=== PATIENT | female | born 1975 | race African-American/Black ===

== ENCOUNTER 2022-07-01 23:49 | Inpatient (IN) | payer MEDICAID ==
[~2022-07-01] VITALS: Ht 175.3 cm; Wt 84.5 kg
[~2022-07-01 23:49] MED LIST: ALPR0.5T7; CARI350T27; FAMO-12; FLUO40CA; HYDR-2595
[2022-07-02] MEDS ORDERED: ACCU-CHEK COMFORT CURVE STRIP VI ONE (00:30)
[2022-07-02 00:58] LABS: Basophils # (auto) 0.1 10 ^3/uL (0-0.2); Basophils % (auto) 0.5 % (0.0-2.0); Eosinophils # (auto) 0.1 10 ^3/uL (0-0.8); Eosinophils % (auto) 0.5 % (0.0-7.0); Hematocrit 29.8 % (36.0-46.0); Hemoglobin 10.1 g/dL (12.2-16.2); Lymphocytes # (auto) 2.1 10 ^3/uL (0.4-5.4); Lymphocytes % (auto) 15.4 % (10.0-50.0); Mean Corpuscular Hemoglobin 28.1 pg (28.0-32.0); Mean Corpuscular Volume 82.7 fL (80.0-100.0); Monocytes # (auto) 0.6 10 ^3/uL (0-1.3); Monocytes % (auto) 4.2 % (0.0-12.0); Neutrophils % (auto) 79.4 % (37.0-80.0); Nucleated Red Blood Cells % 0.1 %; Red Cell Distribution Width 14.4 % (11.8-14.3); White Blood Cell 13.8 10^3/uL (4.4-10.8)
[2022-07-02 01:13] LABS: Albumin 3.2 g/dL (3.4-5.0); BUN/Creatinine Ratio 44.3 (10.0-20.0); Calcium 7.8 mg/dL (8.5-10.1); Potassium 3.8 mmol/L (3.5-5.1)
[2022-07-02 01:16] LABS: Bilirubin, Total 0.3 mg/dL (0.2-1.0); Total Protein 6.5 g/dL (6.4-8.2)
[2022-07-02] MEDS ORDERED: ONDANSETRON HCL 4 MG/2 ML VIAL IV ONE ×3 (04:30→10:15)
[2022-07-02] MEDS ORDERED: HYDROmorphone HCL 2 MG/ML VL/or syr IV ONE ×2 (04:30→08:30)
[2022-07-02 04:54] LABS: Urine Bacteria NONE SEEN /hpf (None Seen); Urine Blood Negative /uL (Negative); Urine Specific Gravity 1.026 (1.001-1.035); Urine WBC 1 /hpf (0 - 5)
[2022-07-02] MEDS ORDERED: OMNIPAQUE 12mg/ml 500ml ORAL SOLUTION PO ONE (09:27)
[2022-07-02] MEDS ORDERED: IOHEXOL 300 MG/ML 100ML BOTTLE IJ ONE (09:28)
[2022-07-02] MEDS ORDERED: MORPHINE SULFATE INJ 2 MG/ml SYRG IV PRN (15:30)
[2022-07-02] MEDS ORDERED: PIPERACILLIN-TAZOB 3.375GM 100 ML IV ONE (16:00)
[2022-07-02] MEDS: SODIUM CHLORIDE 0.9% 1,000 ML IV SCH ×2 (17:50→23:50)
[2022-07-02] MEDS: HYDROmorphone HCL 2 MG/ML VL/or syr IV PRN ×2 (18:03→21:56)
[2022-07-02] MEDS: ONDANSETRON HCL 4 MG/2 ML VIAL IV PRN ×2 (18:04→21:55)
[2022-07-02] MEDS ORDERED: PANTOPRAZOLE 40 MG/10 ML VIAL INJ IV SCH (22:00)
[2022-07-03] MEDS: PIPERACILLIN-TAZOB 3.375GM 100 ML IV SCH ×2 (00:30→08:45)
[2022-07-03 05:30] LABS: Basophils # (auto) 0 10 ^3/uL (0-0.2); Basophils % (auto) 0.3 % (0.0-2.0); Eosinophils # (auto) 0 10 ^3/uL (0-0.8); Eosinophils % (auto) 0.2 % (0.0-7.0); Hematocrit 26.5 % (36.0-46.0); Hemoglobin 9.1 g/dL (12.2-16.2); Lymphocytes # (auto) 3.5 10 ^3/uL (0.4-5.4); Lymphocytes % (auto) 29.6 % (10.0-50.0); Mean Corpuscular Hemoglobin 28.5 pg (28.0-32.0); Mean Corpuscular Hgb Conc. 34.4 g/dL (32.0-36.0); Mean Corpuscular Volume 82.9 fL (80.0-100.0); Monocytes # (auto) 0.5 10 ^3/uL (0-1.3); Monocytes % (auto) 4.2 % (0.0-12.0); Neutrophils # (auto) 7.7 10 ^3/uL (1.6-8.6); Neutrophils % (auto) 65.7 % (37.0-80.0); Nucleated Red Blood Cells % 0.1 %; Red Blood Cells 3.19 10^6/uL (4.0-5.20); Red Cell Distribution Width 14.3 % (11.8-14.3); White Blood Cell 11.8 10^3/uL (4.4-10.8)
[2022-07-03 05:48] LABS: Albumin 3.8 g/dL (3.4-5.0); Calcium 8.5 mg/dL (8.5-10.1); Potassium 3.8 mmol/L (3.5-5.1)
[2022-07-03 05:53] LABS: BUN/Creatinine Ratio 19.2 (10.0-20.0); Bilirubin, Total 0.6 mg/dL (0.2-1.0)
[2022-07-03] MEDS: ONDANSETRON HCL 4 MG/2 ML VIAL IV PRN (06:35)
[2022-07-03] MEDS: SODIUM CHLORIDE 0.9% 1,000 ML IV SCH (08:10)
[2022-07-03 09:24] VITALS: BP 116/74
== END 2022-07-03 09:24 | disposition short-term general hospital (02) | DRG 254 ==
LOC: ER 23:49 → EDUNIT# 23:49 → EDBD 23:49 → TELE 07-02 15:35 → UNDODISIN 07-03 09:24
PROVIDERS: ADMIT Nurse Practitioner Family; ATTEND Internal Medicine Geriatric Medicine
DX: K31.9 Disease of stomach and duodenum, unspecified (principal); E87.8 Other disorders of electrolyte and fluid balance, not elsewhere classified; D25.9 Leiomyoma of uterus, unspecified; M19.90 Unspecified osteoarthritis, unspecified site; M79.7 Fibromyalgia; Z87.891 Personal history of nicotine dependence
CPT/HCPCS: 36415; 71045; 74176; 74177; 80053; 81001; 83605; 83880; 84484; 85025; 86850; 86900; 86901; 87040; 93005; 96365; 96366; 96375; 96376; C9113; G0378; J2405; J2543

== ENCOUNTER 2024-11-11 19:40 | Emergency (ER) | payer MEDICAID ==
[~2024-11-11] VITALS: Ht 157.5 cm; Wt 85.3 kg
[~2024-11-11 19:40] MED LIST changes: +CARI-578; -CARI350T27
[2024-11-11 19:52] VITALS: BP 174/86; PULSE 75; RESP 20; TEMP 97.8; O2SAT 100
--- NOTE | 2024-11-11 20:28 | ED.PDOC ---
History of Present Illness HPI Comments 49 y/o obese F, with a history of GI malignancy and fibromyalgia, presents with c/c shortness of breath and generalized weakness and tingling sensations. Patient endorses on being, currently, treated for her cancer at a cancer center facility in [place], [place] and, recently, diagnosed with PE on 11/08/24 and placed on Eliquis. Upon arrival to ED, patient reports feeling better. Chief Complaint: Shortness of Breath Time Seen by MD: 20:10 Primary Care Provider: DAVIDA Allergies: Coded Allergies: NO KNOWN ALLERGIES (Unverified , 08/10/09) Home Meds Reported Medications Famotidine (Famotidine) 20 Mg Tab, #60 01/13/13 Fluoxetine Hcl (Fluoxetine Hcl) 40 Mg Cap, #30 01/13/13 Alprazolam (Alprazolam) 0.5 Mg Tab, #60 01/13/13 Carisoprodol (Carisoprodol) 350 Mg Tab, #60 01/13/13 Hydrocodone-Acetaminophen (Hydrocodone/Acetaminophen) 1 Tab Tab, #120 01/13/13 Mode of Arrival: EMS Past Medical History PAST MEDICAL HISTORY: Anxiety, Arthritis Surgical History: BTL, Cholecystectomy, [employer]RATION [employer]OR History: Endometriosis Family History Family History: Reviewed,noncontributory to illness Social History Smoker: Quit Greater Than 1 Year Alcohol: Occasionally Drugs: Marijuana Lives In: Home All Other Systems: Reviewed and Negative (as per HPI) Physical Exam General Appearance: No Apparent Distress, Obese HEENT: Normal ENT Inspection, Pharynx Normal, TMs Normal Neck: Full Range of Motion, Non-Tender, Normal, Normal Inspection Respiratory: Chest Non-Tender, Lungs Clear, No Accessory Muscle Use, No Respiratory Distress, Normal Breath Sounds Cardiovascular: No Edema, No JVD, No Murmur, No Gallop, Normal Peripheral Pulses, Regular Rate/Rhythm Breast Exam: Deferred Gastrointestinal: No Organomegaly, Non Tender, No Pulsatile Mass, Normal Bowel Sounds, Soft Genitalia: Deferred Pelvic: Deferred Rectal: Deferred Extremities: No calf tenderness, Normal capillary refill, Normal inspection, Normal range of motion, Non-tender, No pedal edema Musculoskeletal : Apperance: Normal Neurologic: Alert, gasateria attendant II-XII nml as Tested, No Motor Deficits, Normal Affect, Normal Mood, No Sensory Deficits Cerebellar Function: Normal Reflexes: Normal Skin: Dry, Normal Color, Warm Lymphatic: No Adenopathy Was a procedure done? Was a procedure done?: No Differential Dx Considerations may include: electrolyte imbalance, dehydration, PE, malignancy, among others X-Ray, Labs, Meds, VS Vital Signs Date Time Temp Pulse Resp B/P (MAP) Pulse Ox O2 Delivery O2 Flow Rate FiO2 11/11/24 19:52 97.8 75 20 174/86 100 97.8 11/11/24 19:46 68 Time of 1ST Reevaluation: 20:40 Reevaluation 1ST: Unchanged Patient Education/Counseling: Diagnosis, Treatment, Need For Follow Up Family Education/Counseling: No Family Present Comments Patient eloped before any tests that were ordered were done Additional Information Previous visits: 2022 for acute stomach mass The following tests were ordered, and results were reviewed by me: CXR. BNP, BMP, CBC, troponin Additional Information was gathered from interviewing the following independent historians: N/A I reviewed and agreed with the following test results read by other providers: CXR I discussed treatment and results with medical personnel and: patient SEPSIS Sepsis Screen Date sepsis recognized/suspect: Nov 11, 2024 Time Sepsis recognized/suspect: 1955 Recent Procedure: No On Antibiotic Therapy: No Respiratory Rate >20: No Heart Rate >90: No Temp<36 C (96.8 F) or >38.3 C: No SBP <90 or MAP <65 mmHG: No New Acute Mental Status Change: No Is the patient on CPAP, BIPAP,: No Vital Signs Date Time Temp Pulse Resp B/P (MAP) Pulse Ox O2 Delivery O2 Flow Rate FiO2 11/11/24 19:52 97.8 75 20 174/86 100 97.8 11/11/24 19:46 68 Departure 1 Departure Time of Disposition: 03:47 Impression: Primary Impression: Dyspnea Disposition: LEFT AWOL/ELOPED Condition: Other (unknown) Critical Care Note Critical Care Time?: No Stability Stability form required: No Heart Score Heart Score: Heart Score Response (Comments) Value History N/A 0 EKG N/A 0 Age N/A 0 Risk Factors N/A 0 Troponin N/A 0 Total 0 I personally scribed for MANUEL CASTELLANOS MD ([email or web address]) on 11/11/24 at 20:28. Electronically submitted by Donny Ceron ([email or web address]). MANUEL CASTELLANOS MD Nov 11, 2024 20:28
--- NOTE | 2024-11-16 10:55 | ECG ---
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
== END 2024-11-11 20:56 | disposition left against medical advice (07) ==
LOC: EDBD 19:40 → ER 19:40
DX: R06.00 Dyspnea, unspecified (principal); R53.1 Weakness; R20.2 Paresthesia of skin; F41.9 Anxiety disorder, unspecified; M19.90 Unspecified osteoarthritis, unspecified site; Z90.49 Acquired absence of other specified parts of digestive tract; Z98.51 Tubal ligation status
CPT/HCPCS: 93005